=== PATIENT | female | born 1940 | race Caucasian/White ===

== ENCOUNTER 2023-05-27 10:53 | Emergency (ER) | payer OTHER ==
[~2023-05-27] VITALS: Ht 167.6 cm; Wt 63.5 kg
[2023-05-27 11:07] VITALS: O2SAT 99
[2023-05-27 11:32] LABS: BASOPHILS % 0.5 % (0.0-2.0); HEMOGLOBIN. 11.5 g/dL (12.0-16.0); LYMPHOCYTES % 31.6 % (20.0-50.0); MEAN CORPUSCULAR HEMOGLOBIN 31.5 pg (28.0-32.0); MEAN CORPUSCULAR HGB CONC 32.9 g/dL (31.0-37.0); MEAN CORPUSCULAR VOLUME 95.8 fL (81.0-99.0); MEAN PLATELET VOLUME 8.6 fl (7.4-10.4); MONOCYTES % 9.8 % (2.0-8.0); NEUTROPHILS % 55.1 % (40.0-76.0); PLATELET 287 x1000/uL (130-400); RED BLOOD CELL COUNT 3.66 mill/uL (4.2-5.4); RED CELL DISTRIBUTION WIDTH 13.3 % (11.6-14.6); WHITE BLOOD COUNT 10.2 x1000/uL (4.5-11.0)
[2023-05-27 11:41] LABS: CHLORIDE 106 mEq/L (98-107); INDEX HEMOLYSI 1 (1-3); INDEX ICTERIC 1 (1-4); INDEX LIPEMIC 1 (1-3); POTASSIUM 3.8 mEq/L (3.5-5.1); SODIUM 139 mEq/L (136-145)
[2023-05-27 11:43] LABS: PROTHROMBIN TIME 10.8 sec (9.6-11.0)
[2023-05-27 11:48] LABS: ALANINE AMINOTRANSFERASE 22 IU/L (13-61); ALBUMIN 3.4 g/dL (3.4-5.0); ASPARTATE AMINOTRANSFERASE 17 IU/L (15-37); BILIRUBIN TOTAL 0.3 mg/dL (0.1-1.0); CARBON DIOXIDE 28 mEq/L (21-32); CREATININE 0.5 mg/dL (0.6-1.3); GLUCOSE 129 mg/dL (70-105); PROTEIN TOTAL 7.4 g/dL (6.0-8.3); UREA NITROGEN BLOOD 14 mg/dL (7-21)
[2023-05-27] MEDS ORDERED: TETANUS, DIPHTHERIA, PERTUSSIS VAC/PF 0.5ML (>10YR OLD) IM ONE ×2 (12:15→18:15)
[2023-05-27] MEDS ORDERED: MORPHINE SULFATE 4 MG/ML CPJ (NOT FOR IM USE) IV ONE (14:30)
[2023-05-27] MEDS ORDERED: ONDANSETRON HCL 4MG/2ML INJ IV ONE (14:45)
[2023-05-27 16:00] VITALS: TEMP 98.1
[2023-05-27] MEDS ORDERED: LIDOCAINE HCL/EPINEPHRINE 1%-EPI 1:100,000 20 ML VIAL INFIL ONE (17:00)
[2023-05-27] MEDS ORDERED: BACITRACIN ZINC OINT UDPKT TOP ONE (17:00)
[2023-05-27] MEDS ORDERED: KETOROLAC 30MG/ML VIAL IV ONE (17:45)
[2023-05-27] MEDS ORDERED: LIDOCAINE HCL 1% 20ML VIAL (Pyxis) INJ INFIL ONE (18:00)
[2023-05-27] MEDS ORDERED: IBUP-2029 MT (18:15)
[2023-05-27] MEDS ORDERED: LIDO700A30 TP (18:15)
[2023-05-27] MEDS ORDERED: ONDANSETRON HCL 4MG/2ML INJ IV PRN (19:15)
[2023-05-27 22:00] VITALS: BP 126/73; PULSE 70; RESP 12
[2023-05-27] MEDS ORDERED: ACETAMINOPHEN 325MG TABLET PO ONE (23:00)
== END 2023-05-28 00:27 | disposition short-term general hospital (02) ==
LOC: ER 11:21 → CANBEDREQ 05-28 21:23
DX: S02.2XXA Fracture of nasal bones, initial encounter for closed fracture (principal); M54.50 Low back pain, unspecified; R51.9 Headache, unspecified; W18.39XA Other fall on same level, initial encounter; Y93.89 Activity, other specified; Y92.89 Other specified places as the place of occurrence of the external cause; Y99.8 Other external cause status
CPT/HCPCS: 99285; 70450; 96374; 71045; 96375; 80053; 85025; 85610; 86850; 86900; 86901; 36415; 72125; 72128; 72131; 74177; 90715; 12011; 90471; 96376; J1885; J2405; J2270; J3490